=== PATIENT | male | born 1985 | race Caucasian/White ===

== ENCOUNTER → 2017-07-28 | Day surgery (SDC) | payer OTHER ==
[~2017-07-28] VITALS: Ht 177.8 cm; Wt 77.0 kg
[~2017-07-28] MED LIST: *LABETALOL HCL 100 MG/20 ML VIAL PERIprocedural Use ONLY ONE; ACETAMINOPHEN 1000 MG/100 ML 100 ML IV ONE; ACETAMINOPHEN 1000 MG/100 ML 100 ML IV SCH; BUPIVACAINE HCL PF 0.5% 30 ML VIAL ONE; BUPIVACAINE/EPINEPHRINE 0.5% PF 30 ML VIAL ONE; CHLORHEXIDINE GLUCONATE 2 % 1 PACK (2 CLOTHS) TOPICAL PRN; CHLORHEXIDINE GLUCONATE 4% SOLN 120 ML BTL TOPICAL SCH; DEXAMETHASONE SOD PHOS 4 MG/ML VIAL IV ONE; DO NOT ADM ANY ANTICOAGULANT DRUGS PRN; DOXY100T PO; GENTAMICIN SULFATE 80 MG/2 ML VIAL ONE; GLYCOPYRROLATE 1 MG/5 ML SYRINGE IV PUSH ONE; KETOROLAC TROMETHAMINE 30 MG/ML (IVP) VIAL IVP SCH; LACTATED RINGER'S 1000 ML IV PRN; LIDOCAINE HCL 1% PF 5 ML SYRINGE OTHER ONE; LORT7.5T3 PO; METH10CO4 PO; METOPROLOL TARTRATE 25 MG TAB PO PRN; MIDAZOLAM HCL 2 MG/2 ML VIAL ONE; NEOSTIGMINE 5 MG/5 ML SYRINGE IV PUSH ONE; ONDANSETRON HCL 4 MG/2 ML VIAL IV ONE; POVIDONE IODINE 5% (ANTISEPSIS KIT) 4 APPLICATIONS EACH NARE PRN; PROPOFOL 200 MG/20 ML AMP IV ONE; Post-op Orders (for Pharmacy) XX ONE; ROCURONIUM INJ 50 MG/5 ML SYRINGE IV PUSH ONE; SODIUM CHLOR 0.9% 250 ML INJ 250 ML IV ONE; SODIUM CHLORID 0.9% 500 ML IV PRN; SULF1TAB47 PO; VANCOMYCIN 1000 MG/NS 250 ML (for <70 kg) IV SCH; VANCOMYCIN HCL 1000 MG VIAL ONE; Z.0.NO CURRENT MEDS; ceFAZolin 2 GM PREMIX 50 ML IV SCH
--- NOTE | 2017-07-28 09:45 | PD.OP ---
cc: Vijay Perez MD Operative Report Date of Surgery: Jul 28, 2017 Preoperative Diagnosis: Displaced right olecranon fracture Postoperative Diagnosis: Procedure: Open reduction internal fixation right olecranon Surgeon: Vijay Perez Solid State Tester(s): GOGO Grimm PA-C The surgical procedure was assisted by my physician special education assistant. My P.A. presence was necessary throughout this case for the manipulation and positioning of the surgical extremity. My P.A. was assisting me throughout the duration of this procedure. The skill set of a physician special education assistant was medically necessary to complete this procedure. During the surgical case the photographic technician was working at the back table and the physician special education assistant was directly assisting me. Operation and Findings: Patient was seen and evaluated preoperatively. Patient was found to have a displaced intra-articular right olecranon fracture. The risk and benefits of the surgery were discussed in depth and informed consent was obtained. Risk of surgery include bleeding, infection, painful hardware, wound, case, elbow stiffness, loss of motion, elbow arthritis, injuries to arteries nerves or blood vessels, weakness and numbness of hand, as well as medical complications associated with general anesthesia. All questions were answered. Patient was brought to operating room. IV sedation and anesthesia were administered. Patient was placed into a lateral decubitus position. Timeout procedure was performed. IV antibiotics were administered prior to incision. The operative arm was prepped with alcohol followed by Hibiclens and draped in usual sterile fashion. Procedure began with a 4 inch incision over the olecranon. Subcutaneous tissue dissected with Bovie. Fracture site was visualized. Fascia was elevated around the fracture site. There was mild comminution of the fracture site. Fracture fragments were gently manipulated. A fracture tenaculum was used to aid in reduction. Multiple K wires result provisional fixation. A ITS olecranon plate was selected. Plate was provisionally held with K wires 3.5 cortical screws were used to compress plate to bone. Multiple cortical screws were placed in the ulna shaft. Multiple locking screws were placed in the proximal ulna. All screws were predrilled and premeasured for appropriate length. K wires were removed. Final fluoroscopy revealed excellent of fractures well-placed hardware. Articular surface appeared to be in near anatomic alignment. Wound was now thoroughly irrigated. Incision was now closed with #1 Vicryl, 3-0 Vicryl, and peter. Sterile dressings were applied. Patient's placed a well molded well-padded splint. Patient was transferred to recovery in stable condition. Vijay Perez MD Jul 28, 2017 09:45
--- NOTE | 2017-07-28 10:00 | RADRPT ---
EXAM DATE/TIME: 07/28/2017 09:26 [facility] COMPARISON: No previous studies available for comparison. INDICATIONS : Right elbow open reduction internal fixation. MEDICAL HISTORY : None. SURGICAL HISTORY : None. ENCOUNTER: Initial ACUITY: 1 day PAIN SCORE: Non-responsive. LOCATION: Right elbow FINDINGS: 3 intraprocedural views of the right elbow demonstrate plate and screw fixation of the proximal ulna. Hardware is well-positioned. There is anatomic alignment without additional acute fractures. CONCLUSION: 1. Status post ORIF of right proximal ulna with well-positioned hardware in anatomic alignment. Segun Boone MD on July 28, 2017 at 9:55 Board Certified Radiologist. This report was verified electronically.
[2017-07-28 11:55] VITALS: BP 138/88; PULSE 64; RESP 20; TEMP 97.9; O2SAT 95
== END | disposition home or self-care (01) ==
LOC: HSDC 05:46
PROVIDERS: ATTEND Orthopaedic Surgery Orthopaedic Trauma
DX: S52.021A Displaced fracture of olecranon process without intraarticular extension of right ulna, initial encounter for closed fracture (principal); Z72.0 Tobacco use; W13.2XXA Fall from, out of or through roof, initial encounter
CPT/HCPCS: 01830; 24685; 73080; 76000; C1713; J0131; J0690; J1100; J1580; J2250; J2405; J2710; J3010; J3370; J7050; J7120